=== PATIENT | male | born 1960 | race Caucasian/White ===

== ENCOUNTER 2020-11-07 11:05 | Emergency (ER) | payer BC, SELFPAY ==
--- NOTE | ~2020-11-07 | CT_ITS ---
EXAMINATION: CT abdomen pelvis wo con DATE: 11/07/2020 11:43 INDICATION: Left flank pain starting this morning TECHNIQUE: Computed tomography (CT) of the abdomen and pelvis was performed without intravenous contr ast. Automated exposure control and iterative reconstruction technique were employed. Exam dose: 418 .20 mGy-cm total exam DLP. COMPARISON: 05/14/2019 CT abdomen pelvis and KUB examinations FINDINGS: The lung bases are clear. Cardiomegaly. No pericardial or pleural effusion. There are 2 approximately 9 mm faceted gallstones at the dependent aspect of the gallbladder. No gall bladder wall thickening or pericholecystic fluid or fat stranding is evident. No bile duct dilatation . There are calcified hepatic and splenic granulomas. There is surface nodularity of the liver suggesti ng cirrhosis. No hepatic space-occupying mass lesion is evident on this limited noncontrast examinati on. There is splenomegaly, spleen measuring approximately 15 cm vertical dimension. No pancreatic mass lesion or calcification or pancreatic duct dilatation. Normal morphology of the adrenal glands. There is an approximately 3 mm left ureterovesical junction calculus with minimal left hydroureterone phrosis. No other urinary tract calculus is evident. There is atherosclerotic calcification of the abdominal aorta but no aneurysm. No intraperitoneal or retroperitoneal or pelvic mass lesion or adenopathy or ascites. Prostate gland and seminal vesicles are unremarkable. Normal appendix. No bowel obstruction, bowel wall thickening, pneumatosis or intraperitoneal free air . Small fat-containing umbilical hernia. Small fat-containing left inguinal hernia. Included skeletal structures are unremarkable; no suspicious osteolytic or osteoblastic lesions.. IMPRESSION: 3 mm left uterovesical junction calculus with mild left hydroureteronephrosis Cirrhosis, splenomegaly Cholelithiasis Reviewed, dictated and finalized at [facility]. Reviewed, dictated and finalized at location [facility]. IMPRESSION: 3 mm left uterovesical junction calculus with mild left hydrourete ronephrosis Cirrhosis, splenomegaly Cholelithiasis
[2020-11-07 11:08] VITALS: BP 119/87; PULSE 72; RESP 18; TEMP 36.6; O2SAT 97
[2020-11-07 11:29] LABS: Basophils Absolute Auto 0.1 K/mm3 (0.0-0.1); Basophils Percent Auto 0.5 % (0.2-1.2); Eosinophils Absolute Auto 0.4 K/mm3 (0-0.3); Eosinophils Percent Auto 3.9 % (0-4.4); Hematocrit 42.3 % (42.0-52.0); Immature Granulocyte Absolute 0.05 K/mm3 (0.00-0.031); Immature Granulocyte Percent A 0.5 % (0-0.5); Immature Platelet Fraction Pct 8.4 % (0.9-11.2); Lymphocytes Percent Auto 17.5 % (18.3-44.2); Mean Corpuscular HGB Conc 35.5 g/dl (32-36); Mean Corpuscular Hemoglobin 34.5 pg (26-34); Mean Corpuscular Volume 97.2 fl (80-100); Mean Platelet Volume 11.3 fl (7.4-10.4); Monocytes Percent Auto 10.4 % (2.6-8.5); Neutrophils Absolute Auto 6.1 K/mm3 (1.3-6.7); Neutrophils Percent Auto 67.2 % (45.5-73.1); Platelet Count Result 78 k/mm3 (150-375); Red Blood Count 4.35 M/mm3 (4.6-6.20); Red Cell Distribution Width 12.6 % (11.5-14.5); White Blood Count 9.1 K/mm3 (4.5-10.0)
--- NOTE | 2020-11-07 11:31 | ED.GENADULT ---
HPI - General Adult General Chief complaint: Back Pain/Injury Stated complaint: L FLANK PAIN Time Seen by Provider: 11/07/20 11:08 Source: RN notes reviewed History of Present Illness HPI narrative: Patient presents to emergency department from home for left flank pain. He states pain began this morning proximally 7 AM with pain in the left flank rating the left groin. Patient states pain is described as sharp and stabbing. He states he took no pain medication at home. Denies any fevers or chills, chest pain shortness of breath vomiting diarrhea or any other symptoms states he has a history of kidney stones Related Data Allergies Allergy/AdvReac Type Severity Reaction Status Date / Time No Known Allergies Allergy Verified 12/07/19 09:02 Review of Systems Review of Systems: Narrative: Gen.: Denies fevers or chills ENT: Denies congestion Respiratory: Denies shortness of breath or cough CV: Denies chest pain or palpitations GI: See HPI denies burning, urgency, frequency or hematuria Musculoskeletal: Denies back pain or muscle pain Neuro: Denies numbness, tingling, weakness or focal weakness Skin: Denies rash Except as documented, all other systems reviewed and negative [facility] Past Medical History Medical History Difficulty controlling anger Elevated liver enzymes Heart murmur History of kidney stones Hypertriglyceridemia Hypertriglyceridemia Myocardial infarction Myocardial infarction 1992 Type 2 diabetes mellitus Type 2 diabetes mellitus without complication, without long-term current use of insulin UTI (urinary tract infection) Surgical History Surgical History (Updated 08/19/19 @ 15:25 by Otilia Daley) No history of previous surgery Family History Family History (System 08/19/19 @ 15:25 by Otilia Daely) Mother Cerebrovascular accident Social History Social History Smoking packs per day: 1 Smoking cigarettes per day: 20.0 Smoking status: Current every day smoker Second hand tobacco smoke exposure: Yes Alcohol intake: never Gender identity (if verbalized by the patient): Male Exam Narrative: Exam Narrative: APPEARANCE: No acute distress, nontoxic, resting in bed HEENT: Normocephalic, atraumatic, OMM RESPIRATORY: No respiratory distress, clear to auscultation bilaterally with no rhonchi wheezing or rales CARDIOVASCULAR: RRR s murmur ABDOMINAL: Soft nondistended, tender outpatient left upper quadrant left lower quadrant, no tenderness right upper quadrant right lower quadrant no rebound or guarding, left flank tenderness MUSCULOSKELETAl: Moves all extremities. No clubbing, cyanosis or edema. NEURO: Awake and alert. Following commands, speech normal, no focal deficits SKIN:: Warm, dry. Normal Color PSYCHIATRIC: Normal affect/mood Course Course Emergency Course: Patient states his ride is at the emergency department and he must leave at this time. States that he cannot wait for any further evaluation. States he did urinate in the bathroom but did not give a urine sample discussed with patient risk and benefits of leaving AGAINST MEDICAL ADVICE and will leave at this time. I told the patient may return anytime. The CT scan was taken but not read at the time of leaving AMA I reviewed did see the kidney stone discussed this with the patient Patient has chosen to refuse further care. Risks of an incomplete evaluation and treatment were discussed with the patient including potential for or permanent disability were discussed with the patient seems to understand these risks but still desires to refuse further care. Patient recommended to follow up with her primary care physician in the next possible interval, specifically they?re told they can return to the ED at any time to resume care. Vital Signs Vital signs: Vital Signs Temperature 97.8 F 11/07/20 11:08 P
[2020-11-07] MEDS: KETOROLAC 30 MG/ML VIAL (*BKC) IV PUSH (11:36)
--- NOTE | 2020-11-07 11:39 | PC.NURSE ---
patient refuses to disrobe and change into hospital gown. refusing to answer questions until he gets pain medication
[2020-11-07 11:41] LABS: Anion Gap 3 mmol/L (8-16); Blood Urea Nitrogen 10 mg/dL (9-20); Calcium 9.3 mg/dL (8.4-10.2); Carbon Dioxide 25 mmol/L (22-30); Chloride 108 mmol/L (98-107); Estimated CRCL calculation 139 ml/min; Estimated Glomerular Filt Rate > 60; Glucose 169 mg/dL (75-110); Potassium 4.1 mmol/L (3.4-5.0); Sodium 136 mmol/L (137-145)
--- NOTE | 2020-11-07 11:49 | PC.NURSE ---
after returning patient from ct scan, sustainability director told this nurse that patient went out the back door to smoke a cigarette without informing nursing staff
--- NOTE | 2020-11-07 12:01 | PC.NURSE ---
patient refuses to provide urine specimen. states that he expected to be done within a half hour and that things are taking too long
== END 2020-11-07 12:15 | disposition left against medical advice (07) ==
PROVIDERS: Emergency Provider Emergency Medicine; PCP Internal Medicine
DX: N13.2 Hydronephrosis with renal and ureteral calculous obstruction (principal); E78.1 Pure hyperglyceridemia; I25.2 Old myocardial infarction; E11.9 Type 2 diabetes mellitus without complications
CPT/HCPCS: 36415; 74176; 80048; 85025; 85055; 96374; 99284; J1885; J7030

== ENCOUNTER 2022-01-10 14:43 | Outpatient (CLI) | payer BC, SELFPAY ==
[2022-01-10 19:13] LABS: Anion Gap 7 mmol/L (8-16); Blood Urea Nitrogen 11 mg/dL (9-20); Calcium 9.3 mg/dL (8.4-10.2); Carbon Dioxide 25 mmol/L (22-30); Chloride 100 mmol/L (98-107); Estimated Glomerular Filt Rate > 60; Glucose 404 mg/dL (65-110); Potassium 4.2 mmol/L (3.4-5.0); Sodium 132 mmol/L (137-145)
[2022-01-10 19:35] LABS: Hemoglobin A1C > 14.0 % (<5.7)
== END 2022-01-10 14:44 | disposition home or self-care (01) ==
LOC: ANHGOSHLAB 14:45
PROVIDERS: PCP Internal Medicine; Visit Provider Nurse Practitioner
DX: E11.9 Type 2 diabetes mellitus without complications (principal)
CPT/HCPCS: 36415; 80048; 83036

== ENCOUNTER 2022-01-30 20:54 | Emergency (ER) | payer BC, SELFPAY ==
[2022-01-30 20:55] VITALS: BP 148/89; PULSE 88; RESP 16; TEMP 36.8; O2SAT 99
--- NOTE | 2022-01-30 21:04 | ED.GENADULT ---
HPI - General Adult General Chief complaint: Allergic Reaction Stated complaint: ALLERGIC RX HORNET STINGS Time Seen by Provider: 01/30/22 20:56 History of Present Illness HPI narrative: 61-year-old male presented to the emergency department for evaluation after being stung by multiple hornets. Patient states this incident happened while he was mowing his yard and occurred approximately 30 minutes prior to arrival. Patient called EMS due to the amount of pain. Patient was treated with 50 mg of IV Benadryl in route. Patient denies any chest pain or shortness of breath. Patient does have multiple stings including the left chest wall and left abdominal wall. Related Data Allergies Allergy/AdvReac Type Severity Reaction Status Date / Time No Known Allergies Allergy Verified 01/30/22 21:04 Review of Systems Review of Systems: CONSTITUTIONAL: Denies fever, chills, or sweats. EYES: Denies visual changes, redness, or discharge. ENT: Denies rhinorrhea, congestion, sore throat, or otalgia. CARDIOVASCULAR: Denies chest pain, palpitations, or edema. Chest wall tenderness at site of sting RESPIRATORY: Denies cough or dyspnea. GASTROINTESTINAL: Denies abdominal pain, nausea, vomiting, or diarrhea. GENITOURINARY: Denies dysuria or hematuria. SKIN: Sting to left chest wall and to left abdominal wall MUSCULOSKELETAL: Denies back pain, joint pain, or myalgia. NEUROLOGIC: Denies headache, numbness, or weakness. [facility] Past Medical History Medical History Difficulty controlling anger Elevated liver enzymes Heart murmur History of kidney stones Hypertriglyceridemia Hypertriglyceridemia Myocardial infarction Myocardial infarction 1992 Type 2 diabetes mellitus Type 2 diabetes mellitus without complication, without long-term current use of insulin UTI (urinary tract infection) Surgical History Surgical History No history of previous surgery Family History Family History Mother Cerebrovascular accident Social History Social History (Updated 01/10/22 @ 13:[address] [facility]) Smoking packs per day: 1 Smoking cigarettes per day: 20.0 Smoking status: Current every day smoker Second hand tobacco smoke exposure: Yes Alcohol intake: never Gender identity (if verbalized by the patient): Male Exam Narrative: APPEARANCE: Well appearing, no pain, no distress, well-nourished. HEAD: normocephalic, atraumatic. EYES: PERRLA/EOMI, conjunctivae clear. NOSE: Normal no drainage EARS:TMS clear with good light reflex. THROAT: Pharynx clear, no exudate. NECK: Supple. No adenopathy, no masses. RESPIRATORY: Airway patent, respirations nonlabored. Clear to auscultation bilaterally, no rales, rhonchi, wheezing. CARDIOVASCULAR: Regular rate and rhythm without murmurs rubs or gallops. ABDOMINAL: Soft, nontender, nondistended, normal bowel sounds MUSCULOSKELETAL: Moves all extremities. Strength/ROM intact, No edema, No calf tenderness. NEURO: Alert. Cranial nerves II through XII intact. Grossly intact SKIN: Stings to left chest wall and left abdominal wall Course Course Emergency Course: Patient feels improved with treatment. Patient is was discharged home. Vital Signs Vital signs: Vital Signs Temperature 98.3 F 01/30/22 20:55 Pulse Rate 88 01/30/22 20:55 Respiratory Rate 16 01/30/22 20:55 Blood Pressure 148/89 H 01/30/22 20:55 Pulse Oximetry 99 01/30/22 20:55 Oxygen Delivery Room Air 01/30/22 20:55 Temperature 98.3 F 01/30/22 20:55 Pulse Rate 75 01/30/22 22:59 Respiratory Rate 18 01/30/22 22:59 Blood Pressure 130/82 01/30/22 22:59 Pulse Oximetry 97 01/30/22 22:59 Oxygen Delivery Room Air 01/30/22 20:55 Medical Decision Making Vital Signs Vital Signs: Vital Signs Temperature 98.3 F 01/30/22 20:55 Pulse Rate 88
[2022-01-30] MEDS: methylPREDNISolone SOD SUCC 125 MG VIAL IV PUSH (21:34)
[2022-01-30] MEDS: SODIUM CHLORIDE 0.9% IV 1,000 ML 999 ML IV CONT (21:35)
[2022-01-30] MEDS: FAMOTIDINE 20 MG/2 ML VIAL IV PUSH (21:36)
[2022-01-30] MEDS: fentaNYL CITRATE INJ (*CRX) 100 MCG/2 ML VIAL 50 MCG IV PUSH (21:38)
[2022-01-30 22:59] VITALS: BP 130/82; PULSE 75; RESP 18; O2SAT 97
== END 2022-01-30 23:00 | disposition home or self-care (01) ==
PROVIDERS: Emergency Provider Emergency Medicine; PCP Internal Medicine
DX: T63.451A Toxic effect of venom of hornets, accidental (unintentional), initial encounter (principal); E78.1 Pure hyperglyceridemia; E11.9 Type 2 diabetes mellitus without complications; I25.2 Old myocardial infarction; Z87.440 Personal history of urinary (tract) infections; Z87.442 Personal history of urinary calculi; F17.210 Nicotine dependence, cigarettes, uncomplicated; Z79.4 Long term (current) use of insulin
CPT/HCPCS: 96361; 96374; 96375; 99284; J2930; J3010; J7030

== ENCOUNTER 2022-05-21 13:58 | Outpatient (CLI) | payer BC, SELFPAY ==
[2022-05-21 20:13] LABS: Hemoglobin A1C > 14.0 % (<5.7)
[2022-05-21 20:21] LABS: LDL Cholesterol Direct 96 mg/dL
[2022-05-21 20:24] LABS: Anion Gap 7 mmol/L (8-16); Blood Urea Nitrogen 6 mg/dL (9-20); Calcium 8.1 mg/dL (8.4-10.2); Carbon Dioxide 25 mmol/L (22-30); Chloride 97 mmol/L (98-107); Cholesterol 203 mg/dL (0-200); Estimated Glomerular Filt Rate > 60; Glucose 597 mg/dL (65-110); HDL Direct 29 mg/dL; Potassium 4.3 mmol/L (3.4-5.0); Sodium 129 mmol/L (137-145); Triglycerides 338 mg/dL (<150)
[2022-05-23 17:35] LABS: Glutamic acid decarboxylase AA <5 IU/mL (<5)
== END 2022-05-21 13:59 | disposition home or self-care (01) ==
LOC: ANHGOSHLAB 14:01
PROVIDERS: PCP Internal Medicine; Visit Provider Nurse Practitioner
DX: E11.9 Type 2 diabetes mellitus without complications (principal)
CPT/HCPCS: 36415; 80048; 80061; 83036; 86337; 86341

== ENCOUNTER 2022-06-03 06:53 | Emergency (ER) | payer BC, SELFPAY ==
[2022-06-03] VITALS (8 sets, daily range): BP systolic 91–133; BP diastolic 62–80; PULSE 80–94; RESP 16–22; TEMP 37.3; O2SAT 94–100
--- NOTE | ~2022-06-03 | CT_ITS ---
EXAMINATION: CTA chest abdomen pelvis DATE: 06/03/2022 10:53 INDICATION: Chest pain. TECHNIQUE: Computed tomographic angiography (CTA) of the chest, abdomen, and pelvis was performed wit h 100 mL Omnipaque-350 intravenous contrast. Automated exposure control and iterative reconstruction technique were employed. The dose-length product was 685.23 mGy-cm. Maximum intensity projection 3D-r econstructions of the aorta and other arteries were constructed by the technologist on a separate wor kstation. COMPARISON: CT abdomen and pelvis 11/07/2020 FINDINGS: CHEST CTA: There is mild emphysema. Calcified pulmonary nodules and calcified hilar and mediastinal lymph nodes are consistent with old granulomatous disease. There is mild dependent atelectasis bilaterally. There is smooth septal thickening in the lungs, consistent with mild pulmonary edema. Cardiomegaly is note d. There are coronary artery calcifications. No pericardial effusion. There are calcifications of the aortic valve. There is mild aortic atherosclerosis. No aneurysm or dissection. There is bilateral gy necomastia. There is a small sliding hiatal hernia. ABDOMEN AND PELVIS CTA: The liver demonstrates hypertrophy of left lateral segment and surface nodularity, consistent with ci rrhosis. Calcifications in the liver and spleen are consistent with old granulomatous disease. There is moderate splenomegaly measuring 18.0 cm . There are gallstones in the gallbladder, which is disten ded. The pancreas, adrenal glands, and kidneys are normal. There are no dilated loops of bowel. The a ppendix is normal. There is mild aortic atherosclerosis. No aneurysm or dissection. There is no signi ficant stenosis of celiac axis, superior mesenteric artery, the renal arteries, or inferior mesenteri c artery. There is ulcerated plaque in left common iliac artery. There are no pathologically enlarged lymph nodes. There is no free intraperitoneal fluid. There is mild lumbar spondylosis. IMPRESSION: 1. No aortic dissection or aneurysm. 2. Cirrhosis of the liver with portal venous hypertension. 3. Cholelithiasis. Gallbladder distention may be secondary to fasting or acute cholecystitis. Correla te with physical exam. 4. Mild emphysema. 5. Mild pulmonary edema. 6. Small sliding hiatal hernia. Reviewed, dictated and finalized at location A. TIVE ARTS THERAPIST IMPRESSION: 1. No aortic dissection or aneurysm. 2. Cirrhosis of the liver with portal venous hypertension. 3. Cholelithiasis. Gallbladder distention may be secondary to fasting or acute cholecystitis. Correlate with physical exam. 4. Mild emphysema. 5. Mild pulmonary edema. 6. Small sliding hiatal hernia.
--- NOTE | ~2022-06-03 | XR_ITS ---
EXAMINATION: XR chest 2V DATE: 06/03/2022 07:40 INDICATION: Chest pain. TECHNIQUE: Frontal and lateral views of the chest were obtained. COMPARISON: CT abdomen and pelvis 11/07/2020 FINDINGS: There is mild scarring at left lung apex. No pleural effusion or pneumothorax. The heart si ze is normal. There are old healed right rib fractures. IMPRESSION: 1. Mild scarring at left lung apex. Reviewed, dictated and finalized at location A. Y POWDER MIXER OPERATOR
--- NOTE | 2022-06-03 06:58 | ECG_ITS ---
Measurements Intervals [place] Rate: 94 P: 48 ME: 158 QRS: 72 QRSD: 98 T: 14 QT: 346 QTc: 433 Interpretive Statements SINUS RHYTHM WITH OCCASIONAL VENTRICULAR PREMATURE COMPLEXES POSSIBLE LEFT VENTRICULAR HYPERTROPHY [VOLTAGE CRITERIA PLUS LAE OR QRS WIDENING] NONSPECIFIC T-WAVE ABNORMALITY NO PREVIOUS ECG AVAILABLE FOR COMPARISON Electronically Signed On 06-04-2022 6:22:57 GARNETT FEEDER by Timmy Byrne M.D.
[2022-06-03 07:47] LABS: Basophils Percent Auto 0.4 % (0.2-1.2); Eosinophils Absolute Auto 0.2 K/mm3 (0-0.3); Eosinophils Percent Auto 2.7 % (0-4.4); Hematocrit 41.1 % (42.0-52.0); Hemoglobin 14.2 g/dL (14.0-18.0); Immature Granulocyte Absolute 0.03 K/mm3 (0.00-0.031); Immature Granulocyte Percent A 0.4 % (0-0.5); Immature Platelet Fraction Pct 7.8 % (0.9-11.2); Lymphocytes Absolute Auto 1.41 K/mm3 (0.9-3.2); Lymphocytes Percent Auto 19.3 % (18.3-44.2); Mean Corpuscular HGB Conc 34.5 g/dl (32-36); Mean Corpuscular Hemoglobin 34.7 pg (26-34); Mean Corpuscular Volume 100.5 fl (80-100); Mean Platelet Volume 11.5 fl (7.4-10.4); Monocytes Percent Auto 13.4 % (2.6-8.5); Neutrophils Absolute Auto 4.7 K/mm3 (1.3-6.7); Neutrophils Percent Auto 63.8 % (45.5-73.1); Platelet Count Result 61 k/mm3 (150-375); Red Blood Count 4.09 M/mm3 (4.6-6.20); Red Cell Distribution Width 12.3 % (11.5-14.5); White Blood Count 7.3 K/mm3 (4.5-10.0)
[2022-06-03 07:54] LABS: Alanine Aminotransferase 23 U/L (6-50); Albumin Level 3.8 g/dL (3.5-5.1); Alkaline Phosphatase 133 U/L (38-126); Anion Gap 6 mmol/L (8-16); Aspartate Amino Transferase 23 U/L (17-59); Bilirubin,Total 0.8 mg/dL (0.2-1.3); Blood Urea Nitrogen 8 mg/dL (9-20); Calcium 8.8 mg/dL (8.4-10.2); Carbon Dioxide 27 mmol/L (22-30); Chloride 97 mmol/L (98-107); Estimated Glomerular Filt Rate > 60; Glucose 371 mg/dL (65-110); Lipase 115 U/L (23-300); Potassium 3.7 mmol/L (3.4-5.0); Sodium 130 mmol/L (137-145)
[2022-06-03 08:02] LABS: INR 1.2; Prothrombin Time 14.6 Seconds (11.1-14.7)
[2022-06-03 08:03] LABS: Partial Thromboplastin Time 36.9 SECONDS (22.3-36.8)
[2022-06-03 08:05] LABS: Troponin I 0.014 ng/mL (0.000-0.034)
--- NOTE | 2022-06-03 08:22 | ED.CHESTPAIN ---
HPI - Chest Pain General Chief Complaint: Chest Pain Stated Complaint: chest pain Time Seen by Provider: 06/03/22 07:58 History of Present Illness HPI narrative: This is a 61-year-old male with past medical history of diabetes, presenting to the emergency department complaining of 8/10, chest pain for the past day. He describes the pain as sharp, not radiating, aggravated by deep breathing and positioning, not associated with nausea or vomiting. He denies any recent trauma or recent change in health. Related Data Allergies Allergy/AdvReac Type Severity Reaction Status Date / Time No Known Allergies Allergy Verified 05/23/22 14:43 Review of Systems Review of Systems: CONSTITUTIONAL: Denies fever, chills, or sweats. EYES: Denies visual changes, redness, or discharge. ENT: Denies rhinorrhea, congestion, sore throat, or otalgia. CARDIOVASCULAR: chest pain Denies palpitations, or edema. RESPIRATORY: Denies cough or dyspnea. GASTROINTESTINAL: Denies abdominal pain, nausea, vomiting, or diarrhea. GENITOURINARY: Denies dysuria or hematuria. SKIN: Denies rash or itching. MUSCULOSKELETAL: Denies back pain, joint pain, or myalgia. NEUROLOGIC: Denies headache, numbness, dizziness, or weakness. PSYCHIATRIC: Denies anxiety or depression. [facility] Past Medical History Medical History Difficulty controlling anger Elevated liver enzymes Heart murmur History of kidney stones Hypertriglyceridemia Hypertriglyceridemia Myocardial infarction Myocardial infarction 1992 Type 2 diabetes mellitus Type 2 diabetes mellitus without complication, without long-term current use of insulin UTI (urinary tract infection) Surgical History Surgical History No history of previous surgery Family History Family History Mother Cerebrovascular accident Social History Social History Smoking packs per day: 1 Smoking cigarettes per day: 20.0 Smoking status: Current every day smoker Second hand tobacco smoke exposure: Yes Alcohol intake: never Substance use: current 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 EYES: PERRLA and EOMI. ENT: Nares clear, no rhinorrhea or epistaxis. Mucous membranes moist. Oropharynx without tonsillar hypertrophy exudate or other lesions. NECK: Supple. No adenopathy or masses. No carotid bruits or JVD CHEST: Clear to auscultation. No respiratory distress. No wheezes rales or rhonchi HEART: Regular rate and rhythm. Grade 3 of 5 systolic ejection murmur noted in the left sternal border. Normal peripheral pulses. ABDOMEN: Soft, nontender, nondistended, normal active bowel sounds. EXTREMITIES: Normal range of motion. No edema. SKIN: Warm, dry, no rash. NEURO: No focal deficits. Alert and oriented x3. PSYCH: Normal mood and affect. Course Course Emergency Course: 11:52 - EKG not concerning for ischemia. Initial troponin negative. Heart score 3 (low risk). Chemistry is remarkable for mild hyponatremia at 130 and hypochloremia at 97 with hyperglycemia but are otherwise unremarkable. Chest x-ray showed changes concerning for left upper lobe scarring. CT angiogram not concerning for dissection
[2022-06-03] MEDS: ASPIRIN 81 MG CHEWABLE TABLET 324 MG PO (08:25)
[2022-06-03] MEDS: MORPHINE SULFATE (*CRX) 4 MG/ML INJ IV PUSH (08:26)
--- NOTE | 2022-06-03 08:40 | PC.NURSE ---
Patient crying in room due to pain. Patient educated on use of nitroglycerin but is refusing stating, I don't want a headache my chest already hurts too bad. Patient agreed on taking one tablet.
[2022-06-03] MEDS: NITROGLYCERIN SL 0.4 MG TABLET SUBLINGUAL (08:43)
[2022-06-03] MEDS: SODIUM CHLORIDE 0.9% IV 1,000 ML 999 ML IV CONT (09:23)
--- NOTE | 2022-06-03 09:27 | PC.NURSE ---
Patient's blood pressure dropped to 91/66 following nitroglycerin administration. Patient denies any dizziness or feeling lightheaded. SIMONA Ng notified.
--- NOTE | 2022-06-03 11:48 | PC.NURSE ---
Patient states he is currently pain free. SIMONA Ng notified.
[2022-06-03 11:49] LABS: Troponin I 0.021 ng/mL (0.000-0.034)
--- NOTE | 2022-06-03 12:02 | PC.NURSE ---
Patient removed all cardiac leads and removed IV access. Catheter removed intact, blood noted on patient floor. Patient seen ambulating out of ED room stating, I am just grabbing something to drink I will be right back.
--- NOTE | 2023-12-02 13:09 | ED.GENADULT ---
HPI - General Adult General Chief complaint: Chest Pain Stated complaint: chest pain Time Seen by Provider: 06/03/22 07:58 Related Data Home Medications Medication Instructions Recorded Confirmed levetiracetam 750 mg tablet 750 mg PO Q12H 12/02/23 12/02/23 (Keppra) Allergies Allergy/AdvReac Type Severity Reaction Status Date / Time No Known Allergies Allergy Verified 12/02/23 13:09 [facility] Past Medical History Medical History Difficulty controlling anger Elevated liver enzymes Heart murmur History of kidney stones Hypertriglyceridemia Hypertriglyceridemia Liver cirrhosis Myocardial infarction Myocardial infarction 1992 Type 2 diabetes mellitus Type 2 diabetes mellitus without complication, without long-term current use of insulin UTI (urinary tract infection) Surgical History Surgical History No history of previous surgery Family History Family History Mother Cerebrovascular accident Social History Social History Smoking packs per day: 1 Smoking cigarettes per day: 20.0 Smoking status: Current every day smoker Second hand tobacco smoke exposure: Yes Alcohol intake: never Substance use: current Substance use type: heroin and prescription drug Other substance usage details: fentanyl Last use: 05/22/22 Lack of Transportation: No Lack of Food: Never True Current Housing: Decline to Answer Concerned About Future Housing: Decline to Answer Difficulty Paying Gas/Electric Bills: Decline to Answer Difficulty Paying for Meds: Decline to Answer Currently Unemployed: Decline to Answer Education: Decline to Answer Difficulty w/ Childcare or Family Care: Decline to Answer Gender identity (if verbalized by the patient): Male Course Vital Signs Vital signs: Vital Signs Pulse Rate 88 06/03/22 07:26 Respiratory Rate 18 06/03/22 07:26 Blood Pressure 133/80 06/03/22 07:26 Pulse Oximetry 95 06/03/22 07:26 Temperature 99.2 F 06/03/22 08:56 Pulse Rate 92 06/03/22 11:26 Respiratory Rate 16 06/03/22 11:26 Blood Pressure 98/67 L 06/03/22 11:26 Pulse Oximetry 100 06/03/22 11:26 Medical Decision Making Vital Signs Vital Signs: Vital Signs Pulse Rate 88 06/03/22 07:26 Respiratory Rate 18 06/03/22 07:26 Blood Pressure 133/80 06/03/22 07:26 Pulse Oximetry 95 06/03/22 07:26 Temperature 99.2 F 06/03/22 08:56 Pulse Rate 92 06/03/22 11:26 Respiratory Rate 16 06/03/22 11:26 Blood Pressure 98/67 L 06/03/22 11:26 Pulse Oximetry 100 06/03/22 11:26 Lab Data 06/03/22 07:22 06/03/22 07:22 Labs: Lab Results 06/03/22 06/03/22 Range/Units 07:22 10:10 WBC 7.3 (4.5-10.0) K/mm3 RBC 4.09 L (4.6-6.20) M/mm3 Hgb 14.2 (14.0-18.0) g/dL Hct 41.1 L (42.0-52.0) % MCV 100.5 H (80-100) fl MCH 34.7 H (26-34) pg MCHC 34.5 (32-36) g/dl RDW 12.3 (11.5-14.5) % Plt Count 61 L (150-375) k/mm3 MPV 11.5 H (7.4-10.4) fl Immature Gran % (Auto) 0.4 (0-0.5) % Neut % (Auto) 63.8 (45.5-73.1) % Lymph % (Auto) 19.3 (18.3-44.2) % [place] % (Auto) 13.4 H (2.6-8.5) % Eos % (Auto) 2.7 (0-4.4) % Baso % (Auto) 0.4 (0.2-1.2) % Lymph # (Auto) 1.41 (0.9-3.2) K/mm3 [place] # (Auto) 1.0 H (0.1-0.6) K/mm3 Eos # (Auto) 0.2 (0-0.3) K/mm3 Baso # (Auto) 0.0 (0.0-0.1) K/mm3 Abs Immat Gran (auto) 0.03 (0.00-0.031) K/mm3 Absolute Neuts (auto) 4.7 (1.3-6.7) K/mm3 Absolute Nucleated RBC 0.0 (0.0-0.012) K/mm3 Nucleated RBC % 0.0 (0.0-0.2) % % Immature Plt Fraction 7.8 (0.9-11.2) % PT 14.6 (11.1-14.7) Seconds INR 1.2 APTT 36.9 H (22.3-36.8) SECONDS Sodium 130 L (137-145) mmol/L Potassium 3
== END 2022-06-03 12:20 | disposition home or self-care (01) ==
PROVIDERS: Emergency Medicine; Emergency Provider Preventive Medicine Aerospace Medicine; PCP Internal Medicine
DX: R07.89 Other chest pain (principal); K21.9 Gastro-esophageal reflux disease without esophagitis; J43.9 Emphysema, unspecified; E11.9 Type 2 diabetes mellitus without complications; E78.1 Pure hyperglyceridemia; I25.2 Old myocardial infarction; Z87.440 Personal history of urinary (tract) infections; Z87.442 Personal history of urinary calculi; F17.200 Nicotine dependence, unspecified, uncomplicated; Z79.4 Long term (current) use of insulin; R94.31 Abnormal electrocardiogram [ECG] [EKG]; K74.60 Unspecified cirrhosis of liver; K76.6 Portal hypertension; J81.1 Chronic pulmonary edema; K80.20 Calculus of gallbladder without cholecystitis without obstruction; K44.9 Diaphragmatic hernia without obstruction or gangrene
CPT/HCPCS: 36415; 71046; 71275; 74174; 80053; 83690; 84484; 85025; 85055; 85610; 85730; 93005; 96361; 96374; 96375; 99284; A9270; J0131; J2270; J7030; Q9967

== ENCOUNTER 2022-06-03 23:41 | Observation (INO) | payer BC, SELFPAY ==
--- NOTE | ~2022-06-03 | XR_ITS ---
EXAMINATION: XR chest 1V portable Exam Date/Time: 06/03/2022 0:35 RUBBERIZING MECHANIC HISTORY: chest pain, smoker Comparison: 06/03/2022. RESULT: Lines, tubes, and devices: None. Lungs and pleura: Diffuse reticular and groundglass opacities. Streaky linear bibasilar opacities. N o pneumothorax. Minimal bilateral costophrenic angle blunting. Cardiomediastinal silhouette: Stable. Other: No acute osseous or upper abdominal finding. IMPRESSION: Pulmonary opacities likely represent interstitial edema and bibasilar atelectasis. Possible trace priscila ateral pleural effusions Infection not excluded. Reviewed, dictated and finalized at location K. ERIZING MECHANIC IMPRESSION: Pulmonary opacities likely represent interstitial edema and bibasilar atelectas is. Possible trace bilateral pleural effusions Infection not excluded.
[2022-06-03 23:42] VITALS: BP 130/85; PULSE 114; RESP 22; TEMP 37.7; O2SAT 92
--- NOTE | 2022-06-03 23:42 | ECG_ITS ---
Measurements Intervals [place] Rate: 95 P: 24 PA: 161 QRS: 93 QRSD: 109 T: 18 QT: 359 QTc: 452 Interpretive Statements SINUS RHYTHM BORDERLINE RIGHT AXIS DEVIATION [QRS AXIS > 90] BORDERLINE VOLTAGE EVIDENCE OF LVH SMALL NONDIAGNOSTIC INFERIOR Q-WAVES ABNORMAL ECG NO PREVIOUS ECG AVAILABLE FOR COMPARISON Electronically Signed On 06-04-2022 15:02:57 VENEER SORTER by Timmy Byrne M.D.
[2022-06-03 23:48] VITALS: RESP 23
--- NOTE | 2022-06-03 23:51 | ED.CHESTPAIN ---
HPI - Chest Pain General Chief Complaint: Chest Pain Stated Complaint: chest pain Time Seen by Provider: 06/03/22 23:43 Source: RN notes reviewed History of Present Illness HPI narrative: Patient presents emergency department from home via EMS for chest pain. Patient states chest pains been ongoing for the past 3 days. The pain is located across his bilateral anterior chest described as aching in nature. Patient states the pain is worse with movement and deep inspiration states that nothing makes the pain better. He denies having any fevers or chills states he does have a intermittent cough that is nonproductive he denies any abdominal pain nausea or vomiting. States he is having shortness of breath. Patient was seen in the emergency department earlier today for the same chest pain and had a work-up and was discharged at that time Related Data Allergies Allergy/AdvReac Type Severity Reaction Status Date / Time No Known Allergies Allergy Verified 06/03/22 23:45 Review of Systems Review of Systems: Gen.: Denies fevers or chills ENT: Denies congestion Respiratory: Denies shortness of breath reports cough CV: See HPI GI: Denies abdominal pain nausea, emesis or diarrhea Musculoskeletal: Denies back pain or muscle pain Neuro: Denies numbness, tingling, weakness or focal weakness Skin: Denies rash Except as documented, all other systems reviewed and negative [facility] Past Medical History Medical History Difficulty controlling anger Elevated liver enzymes Heart murmur History of kidney stones Hypertriglyceridemia Hypertriglyceridemia Myocardial infarction Myocardial infarction 1992 Type 2 diabetes mellitus Type 2 diabetes mellitus without complication, without long-term current use of insulin UTI (urinary tract infection) Surgical History Surgical History No history of previous surgery Family History Family History Mother Cerebrovascular accident Social History Social History Smoking packs per day: 1 Smoking cigarettes per day: 20.0 Smoking status: Current every day smoker Second hand tobacco smoke exposure: Yes Alcohol intake: never Substance use: current Substance use type: heroin and prescription drug Other substance usage details: fentanyl Last use: 05/22/22 Lack of Transportation: No Lack of Food: Never True Current Housing: I Have Housing Concerned About Future Housing: No Difficulty Paying Gas/Electric Bills: Decline to Answer Difficulty Paying for Meds: Decline to Answer Currently Unemployed: Decline to Answer Education: Decline to Answer Difficulty w/ Childcare or Family Care: Decline to Answer Gender identity (if verbalized by the patient): Male Exam Narrative: APPEARANCE: No acute distress, nontoxic, resting in bed EYES: EOMI HEENT: Normocephalic, atraumatic, OMM RESPIRATORY: No respiratory distress Clear to auscultation bilaterally with no rhonchi wheezing or rales. CARDIOVASCULAR: Regular rate and rhythm with grade 4 out of 6 systolic ejection murmur ABDOMINAL: Soft, nontender, nondistended, no rebound or guarding MUSCULOSKELETAl: Moves all extremities. No clubbing, cyanosis or edema. NEURO: Awake and alert. Following commands, speech normal, no focal deficits SKIN:: Warm, dry. No rashes lesions or abrasions PSYCHIATRIC: Normal affect/mood, Course Course Emergency Course: Reviewed records from previous ER visit this morning the patient had 2 troponins that were within normal limits patient also had a CTA of the chest abdomen pelvis at that time showing no signs of aortic aneurysm or dissection. No pulmonary embolisms Discussed with Dr. Parada agrees with admission Discussed with patient and family results of workup and diagnosis. Discu
[2022-06-03 23:52] VITALS: BP 128/76; PULSE 104; RESP 22
[2022-06-04] VITALS (9 sets, daily range): BP systolic 101–127; BP diastolic 69–88; PULSE 85–111; RESP 12–33; TEMP 36.6; O2SAT 89–95; BMI 25.4
[2022-06-04] MEDS: ASPIRIN 81 MG CHEWABLE TABLET 324 MG PO
[2022-06-04] MEDS: SODIUM CHLORIDE 0.9% IV 1,000 ML 999 ML IV CONT
[2022-06-04] MEDS: MORPHINE SULFATE (*CRX) 2 MG/ML INJ IV PUSH (00:01)
[2022-06-04 00:19] LABS: Alanine Aminotransferase 22 U/L (6-50); Albumin Level 3.8 g/dL (3.5-5.1); Alkaline Phosphatase 129 U/L (38-126); Anion Gap 6 mmol/L (8-16); Aspartate Amino Transferase 25 U/L (17-59); Blood Urea Nitrogen 8 mg/dL (9-20); Calcium 8.7 mg/dL (8.4-10.2); Carbon Dioxide 25 mmol/L (22-30); Chloride 98 mmol/L (98-107); Estimated Glomerular Filt Rate > 60; Glucose 290 mg/dL (65-110); Lipase 26 U/L (23-300); Potassium 3.8 mmol/L (3.4-5.0); Sodium 129 mmol/L (137-145)
[2022-06-04 00:20] LABS: Basophils Percent Auto 0.4 % (0.2-1.2); Eosinophils Absolute Auto 0.2 K/mm3 (0-0.3); Eosinophils Percent Auto 1.5 % (0-4.4); Hematocrit 40.7 % (42.0-52.0); Hemoglobin 14.4 g/dL (14.0-18.0); Immature Granulocyte Absolute 0.07 K/mm3 (0.00-0.031); Immature Granulocyte Percent A 0.6 % (0-0.5); Immature Platelet Fraction Pct 8.1 % (0.9-11.2); Lymphocytes Absolute Auto 1.18 K/mm3 (0.9-3.2); Lymphocytes Percent Auto 10.7 % (18.3-44.2); Mean Corpuscular HGB Conc 35.4 g/dl (32-36); Mean Platelet Volume 10.7 fl (7.4-10.4); Monocytes Absolute Auto 1.7 K/mm3 (0.1-0.6); Monocytes Percent Auto 15.4 % (2.6-8.5); Neutrophils Absolute Auto 7.8 K/mm3 (1.3-6.7); Neutrophils Percent Auto 71.4 % (45.5-73.1); Platelet Count Result 77 k/mm3 (150-375); Red Blood Count 4.11 M/mm3 (4.6-6.20); Red Cell Distribution Width 12.2 % (11.5-14.5)
[2022-06-04 00:21] LABS: INR 1.3; Prothrombin Time 15.3 Seconds (11.1-14.7)
[2022-06-04 00:22] LABS: Partial Thromboplastin Time 38.4 SECONDS (22.3-36.8)
[2022-06-04 00:27] LABS: NT Pro B Type Natriuretic Pept 664 pg/mL (5-100)
[2022-06-04 00:30] LABS: Troponin I 0.021 ng/mL (0.000-0.034)
[2022-06-04 00:58] LABS: Influenza A QL RT-PCR Negative (Negative); Influenza B QL RT-PCR Negative (Negative); SARS-CoV-2 RNA PCR Negative
--- NOTE | 2022-06-04 01:21 | PC.NURSE ---
patient refuses to wear oxygen, he states, it isn't helping me at all . attempted to discuss the need for oxygen and he continues to refuse. he also is refusing to wear BP cuff
[2022-06-04 01:36] LABS: Lactic Acid Reflex 0.9 mmol/L (0.7-2.0)
--- NOTE | 2022-06-04 01:57 | PC.NURSE ---
Patient arrived on unit at 01:52 on 06/04/2022
--- NOTE | 2022-06-04 02:30 | PC.NURSE ---
Patient non-compliant with admission process and is refusing to answer questions appropriately related to past medical history. Patient is a&o x4 and able to answer orientation questions appropriately, but will not provide information regarding history. Patient repeatedly states he would like to sign out AMA.
--- NOTE | 2022-06-04 02:58 | PC.NURSE ---
Patient was non-compliant and belligerent during admission process, presents as a&ox4, however refuses to answer past medical history and insists on leaving the floor to go outside. fast food cook notified and assisted in attempting to discuss risks with patient, patient continued to be belligerent and stated this is not a detention, you cannot stop me from going outside ; lost charge card clerk explained hospital policy, patient resistant to education pertaining to admission and signing out AMA. AMA form printed and signed by patient; IV access removed prior to patient departure. Patient escorted to the exit in the emergency room, continuing to curse at staff. RN asked if patient had transportation home and was met with the reply that is not your concern . Wildlife Refuge Specialist notified of AMA status.
--- NOTE | 2022-06-04 04:46 | PM.IMHP ---
H&P: HPI History of Present Illness Date/Time: 06/04/22 04:46 Chief Complaint: Chest pain Narrative: The patient was admitted for commute choir pneumonia. Shortly after arriving to the medical floor the patient demanded to go outside and smoke. When he found out that hospital policy for hip but it him from being able to go outside and smoke he became angry And belligerent with staff. He was complaining about chest pain but was demanding to go outside to smoke. While leaving through the ER the patient continued occurs at nursing staff. The patient left AMA despite being educated as to the risks of doing so. [facility] Past Medical History Medical History Difficulty controlling anger Elevated liver enzymes Heart murmur History of kidney stones Hypertriglyceridemia Hypertriglyceridemia Myocardial infarction Myocardial infarction 1992 Type 2 diabetes mellitus Type 2 diabetes mellitus without complication, without long-term current use of insulin UTI (urinary tract infection) Surgical History Surgical History No history of previous surgery Family History Family History Mother Cerebrovascular accident Social History Social History Smoking packs per day: 1 Smoking cigarettes per day: 20.0 Smoking status: Current every day smoker Second hand tobacco smoke exposure: Yes Alcohol intake: never Substance use: current Substance use type: heroin and prescription drug Other substance usage details: fentanyl Last use: 05/22/22 Lack of Transportation: No Lack of Food: Never True Current Housing: I Have Housing Concerned About Future Housing: No Difficulty Paying Gas/Electric Bills: Decline to Answer Difficulty Paying for Meds: Decline to Answer Currently Unemployed: Decline to Answer Education: Decline to Answer Difficulty w/ Childcare or Family Care: Decline to Answer Gender identity (if verbalized by the patient): Male Meds Home Medications and Allergies Home Medications Medication Instructions Recorded Confirmed Type blood sugar diagnostic (Accu-Chek #100 ea 09/21/21 06/04/22 Rx Guide test strips) blood-glucose meter (Accu-Chek #1 ea 09/21/21 06/04/22 Rx Guide Glucose Meter) lancets (Accu-Chek Softclix #100 ea 09/21/21 06/04/22 Rx Lancets) insulin syringe-needle U-100 0.5 #100 ea 09/25/21 06/04/22 Rx mL 31 gauge x 5/16 (BD Insulin Syringe Ultra-Fine) pen needle, diabetic 31 gauge x #100 ea 09/27/21 06/04/22 Rx 5/16 (BD Ultra-Fine Short Pen Needle) luliconazole 1 % topical cream 1 applic topical DAILY 1 week #60 01/10/22 06/04/22 Rx (Luzu) grams insulin glargine 100 unit/mL (3 30 unit (0.3 mL) subcut QPM 90 05/23/22 06/04/22 Rx mL) subcutaneous pen (Basagl days #15 mL KwikPen U-100 Insulin) acetaminophen 500 mg capsule 1,000 mg PO Q8H PRN fever or pain 06/03/22 06/04/22 Rx #60 caps Allergies Allergy/AdvReac Type Severity Reaction Status Date / Time No Known Allergies Allergy Verified 06/04/22 02:01 Vital Signs Vital Signs - 24 hr 06/03/22 23:42 06/04/22 00:32 06/03/22 23:48 Temperature 99.8 F H Pulse Rate 114 H Respiratory Rate 22 H 23 H Blood Pressure 130/85 Pulse Oximetry 92 95 Oxygen Delivery Room Air Nasal Cannula Oxygen Flow Rate 2 06/03/22 23:52 06/04/22 00:00 06/04/22 00:03 Temperature Pulse Rate 104 H 111 H 108 H Respiratory Rate 22 H 33 H 33 H Blood Pressure 128/76 127/88 Pulse Oximetry 92 Oxygen Delivery Oxygen Flow Rate 06/04/22 00:15 06/04/22 00:30 06/04/22 01:43 Temperature Pulse Rate 96 95 87 Respiratory Rate 29 H 30 H 24 H Blood Pressure 101/69 Pulse Oximetry 89 L 90 Oxygen Delivery Oxygen Flow Rate 06/04/22 00:49
== END 2022-06-04 02:45 | disposition left against medical advice (07) ==
LOC: ANHED 23:45 → ANH3MEDSUR 06-04 01:30
PROVIDERS: Admitting Provider Internal Medicine; Emergency Provider Emergency Medicine; PCP Internal Medicine; Visit Provider Internal Medicine
DX: R01.1 Cardiac murmur, unspecified (principal); E78.1 Pure hyperglyceridemia; I25.2 Old myocardial infarction; E11.9 Type 2 diabetes mellitus without complications; Z20.822 Contact with and (suspected) exposure to COVID-19; F17.210 Nicotine dependence, cigarettes, uncomplicated; F11.90 Opioid use, unspecified, uncomplicated; J18.9 Pneumonia, unspecified organism; R09.1 Pleurisy; R94.31 Abnormal electrocardiogram [ECG] [EKG]; R45.4 Irritability and anger; Z53.29 Procedure and treatment not carried out because of patient's decision for other reasons; Z79.4 Long term (current) use of insulin; Z79.1 Long term (current) use of non-steroidal anti-inflammatories (NSAID); Z79.899 Other long term (current) drug therapy; Z82.49 Family history of ischemic heart disease and other diseases of the circulatory system
CPT/HCPCS: 36415; 71045; 80053; 83605; 83690; 83880; 84484; 85025; 85055; 85610; 85730; 87040; 87636; 93005; 96361; 96365; 96375; 99285; A9270; G0378; J0696; J2270; J7030

== ENCOUNTER 2023-12-02 12:38 | Emergency (ER) | payer BC, SELFPAY ==
[2023-12-02] VITALS (27 sets, daily range): BP systolic 68–161; BP diastolic 42–131; PULSE 64–83; RESP 14–24; TEMP 36.7; O2SAT 97–100
--- NOTE | ~2023-12-02 | XR_ITS ---
Portable chest x-ray Comparison: 06/04/2022 Clinical History: Altered mental status Findings: Lungs are clear, without focal consolidation or pleural effusion. Cardiomediastinal silho uette is stable. Bones and soft tissues are unremarkable. Impression: Clear lungs. Reviewed, dictated and finalized at location . Impression: Clear lungs.
--- NOTE | ~2023-12-02 | CT_ITS ---
Corrected Report Correction to Visit acct # 12/03/2023 [facility] This report was recreated on 12/03/2023. Original report was signed by Peter Barreto M.D. on 12/02/2023 15:08 CDT. EXAMINATION: CT brain wo con DATE: 12/02/2023 14:45 INDICATION: AMS . TECHNIQUE: Computed tomography (CT) of the head was performed without intravenous contrast. The mA was adjusted according to patient size. Iterative reconstruction technique was employed. The dose-length product was 605.33 mGy- cm. COMPARISON: None. FINDINGS: No acute intracranial hemorrhage or extra-axial fluid collection. No hydrocephalus, mass, or herniation. No acute ischemic infarct. Unremarkable dural venous sinus attenuation. No acute osseous abnormality. Partially visualized left anterior maxillary screw and plate fixation hardware. Mild atrophy and chronic white matter change. Atherosclerotic intracranial calcification. Left lens replacement. Retention cysts/polyps in the ethmoid sinuses, the remaining aerated spaces are clear. IMPRESSION: No acute intracranial process. Reviewed, dictated and finalized at location K. MTDD
--- NOTE | 2023-12-02 13:16 | ECG_ITS ---
Test Date: 2023-12-02 13:44:59 Measurements Intervals [place] Rate: 85 P: 59 RI: 163 QRS: 88 QRSD: 105 T: 18 QT: 400 QTc: 478 Interpretive Statements SINUS RHYTHM NONSPECIFIC ST & T-WAVE ABNORMALITY No previous ECG available for comparison Electronically Signed On 12-03-2023 10:43:26 CDT by Amber Cha M.D.
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
[2023-12-02] MEDS: diphenhydrAMINE HCl INJ 50 MG/ML VIAL IM (13:34)
[2023-12-02] MEDS: LORazepam INJ (*CRX) 2 MG/ML VIAL IM (13:34)
[2023-12-02] MEDS: LORazepam INJ (*CRX) 2 MG/ML VIAL 1 MG IV PUSH (13:48)
[2023-12-02 13:58] LABS: Basophils Percent Auto 0.5 % (0.2-1.2); Eosinophils Absolute Auto 0.3 K/mm3 (0-0.3); Hematocrit 43.7 % (42.0-52.0); Hemoglobin 15.6 g/dL (14.0-18.0); Immature Granulocyte Absolute 0.03 K/mm3 (0.00-0.031); Immature Granulocyte Percent A 0.4 % (0-0.5); Immature Platelet Fraction Pct 9.5 % (0.9-11.2); Lymphocytes Absolute Auto 2.16 K/mm3 (0.9-3.2); Lymphocytes Percent Auto 29.5 % (18.3-44.2); Mean Corpuscular HGB Conc 35.7 g/dl (32-36); Mean Corpuscular Hemoglobin 35.1 pg (26-34); Mean Corpuscular Volume 98.4 fl (80-100); Monocytes Absolute Auto 0.9 K/mm3 (0.1-0.6); Monocytes Percent Auto 11.9 % (2.6-8.5); Neutrophils Absolute Auto 3.9 K/mm3 (1.3-6.7); Neutrophils Percent Auto 53.7 % (45.5-73.1); Platelet Count Result 59 k/mm3 (150-375); Red Blood Count 4.44 M/mm3 (4.6-6.20); Red Cell Distribution Width 12.4 % (11.5-14.5); White Blood Count 7.3 K/mm3 (4.5-10.0)
[2023-12-02 14:06] LABS: Alanine Aminotransferase 29 U/L (6-50); Albumin Level 4.1 g/dL (3.5-5.1); Alkaline Phosphatase 128 U/L (38-126); Anion Gap 9 mmol/L (4-12); Appearance Urine Clear (Clear); Aspartate Amino Transferase 37 U/L (17-59); Bacteria Urine None Seen /hpf; Bilirubin Urine 1+ (Negative); Bilirubin,Total 1.7 mg/dL (0.2-1.3); Blood Urea Nitrogen 8 mg/dL (9-20); Blood Urine Negative (Negative); Carbon Dioxide 24 mmol/L (22-30); Chloride 101 mmol/L (98-107); Color Urine Dark Yellow (Yellow); Estimated CRCL calculation 111 ml/min; Estimated Glomerular Filt Rate > 60; Ethanol < 10 mg/dL (<10); Glucose 260 mg/dL (65-110); Glucose Urine UA 3+ mg/dL (Negative); Ketones Urine Trace mg/dL (Negative); Leukocyte Esterase Ur Negative LEU/UL (Negative); Nitrate Urine Negative (Negative); Non Pathogenic Casts 0-2; Potassium 3.7 mmol/L (3.4-5.0); Protein Urine Trace mg/dL (Negative); RBC Urine 0-2 /hpf (0-2); Sodium 134 mmol/L (137-145); Squamous Epithelial Cell Urine None Seen /hpf (Few); WBC Urine 0-5 /hpf (0-3); pH Urine 5.5 (5.0-9.0)
[2023-12-02 14:07] LABS: INR 1.1; Prothrombin Time 14.9 Seconds (11.1-14.7)
[2023-12-02 14:08] LABS: Partial Thromboplastin Time 37.3 Seconds (22.3-36.8)
[2023-12-02 14:14] LABS: Amphetamine Screen Urine Negative (Negative); Barbiturate Screen Urine Negative (Negative); Benzodiazepines Screen Urine Negative (Negative); Cannabinoid Screen Urine Negative (Negative); Cocaine Screen Urine Negative (Negative); Methadone Screen Urine Negative (Negative); Opiate Screen Urine Negative (Negative); Phencyclidine Screen Urine Negative (Negative)
[2023-12-02 14:16] LABS: Specific Grav Ur 1.035 (1.001-1.035)
[2023-12-02 14:17] LABS: Add Urine Microscopic? YES
[2023-12-02 14:22] LABS: Troponin I < 0.012 ng/mL (0.000-0.034)
[2023-12-02 14:51] LABS: Appearance Urine Clear (Clear); Bacteria Urine None Seen /hpf; Bilirubin Urine Negative (Negative); Blood Urine Negative (Negative); Color Urine Dark Yellow (Yellow); Glucose Urine UA 3+ mg/dL (Negative); Ketones Urine Negative (Negative); Leukocyte Esterase Ur Negative LEU/UL (Negative); Nitrate Urine Negative (Negative); Non Pathogenic Casts 0-2; Protein Urine Trace mg/dL (Negative); RBC Urine 0-2 /hpf (0-2); Squamous Epithelial Cell Urine None Seen /hpf (Few); WBC Urine 0-5 /hpf (0-3); pH Urine 5.5 (5.0-9.0)
[2023-12-02 14:53] LABS: Specific Grav Ur 1.035 (1.001-1.035)
[2023-12-02 14:54] LABS: Add Urine Microscopic? YES
[2023-12-02 16:04] LABS: Thyroid Stimulating Hormone 0.897 uIU/mL (0.465-4.680)
[2023-12-02] MEDS: levETIRAcetam 1500MG/NACL100ML 1,500 MG/100 ML BAG 400 MG IVPB (16:41)
== END 2023-12-02 18:30 | disposition short-term general hospital (02) ==
PROVIDERS: Emergency Provider Emergency Medicine; PCP Internal Medicine
DX: R41.82 Altered mental status, unspecified (principal); R47.01 Aphasia; R56.9 Unspecified convulsions; I65.23 Occlusion and stenosis of bilateral carotid arteries; I25.2 Old myocardial infarction; E11.9 Type 2 diabetes mellitus without complications; E78.1 Pure hyperglyceridemia; Z87.440 Personal history of urinary (tract) infections; Z87.442 Personal history of urinary calculi; F17.210 Nicotine dependence, cigarettes, uncomplicated; Z79.4 Long term (current) use of insulin; Z79.899 Other long term (current) drug therapy
CPT/HCPCS: 36415; 70450; 71045; 80053; 80307; 81001; 84443; 84484; 85025; 85055; 85610; 85730; 93005; 96365; 96372; 96375; 99285; A9270; J1200; J1953; J2060

== ENCOUNTER 2023-12-23 14:46 | Outpatient (CLI) | payer BC, SELFPAY ==
--- NOTE | ~2023-12-23 | US_ITS ---
EXAMINATION: US venous doppler [facility] DATE: 12/23/2023 15:16 INDICATION: Localized edema . TECHNIQUE: Grayscale images without and with compression and Doppler images of the left lower extremi ty veins were obtained. COMPARISON: None FINDINGS: The left common femoral vein, profunda (deep) femoral vein, femoral vein, popliteal vein, peroneal v ein, posterior tibial veins, gastrocnemius vein, and greater saphenous vein are patent. Small Zimmer's cyst in the popliteal fossa. IMPRESSION: Patent left lower extremity veins. No evidence of deep venous thrombosis. Reviewed, dictated and finalized at location K.
== END 2023-12-23 14:47 ==
PROVIDERS: PCP Internal Medicine; Visit Provider Internal Medicine
DX: M79.89 Other specified soft tissue disorders (principal); R60.0 Localized edema
CPT/HCPCS: 93971

== ENCOUNTER 2023-12-26 17:50 | Observation (INO) | payer BC, SELFPAY ==
--- NOTE | ~2023-12-26 | CT_ITS ---
Procedure: CT UE RT w con Ordering provider: Valentina Good PA-C History: . induration/redness/pain to R axillary/upper arm . Comparison: None. Technique: Thin slice axial CT of the No IV contrast was given. Sagittal and coronal reformatted imag es were also obtained and reviewed. Radiation reduction technique utilized. DLP 1649.12 mGy. Findings: BONES: No bone abnormality. JOINT SPACES: Normal. SOFT TISSUES: Fat stranding seen in the medial aspect of the right arm and axilla with possible colle ction or thickening of the soft tissues measuring 2.8 x 1.7 cm. Lymph node is seen in the area measur ing 1.8 cm. IMPRESSION: Cellulitis in the upper inner aspect of the right arm and in the axilla with no definite abscess form ation. Small fluid collection or focal edematous tissue cannot be excluded. Reviewed, dictated and finalized at location A. IMPRESSION: Cellulitis in the upper inner aspect of the right arm and in the axilla with no definite abscess formation. Small fluid collection or focal edematous tissue c annot be excluded.
[2023-12-26 17:57] VITALS: BP 135/83; PULSE 94; RESP 20; TEMP 36.6; O2SAT 96
[2023-12-26] MEDS: MORPHINE SULFATE (*CRX) 4 MG/ML INJ IV PUSH ×2 (19:02→21:45)
[2023-12-26] MEDS: ONDANSETRON INJ 4 MG/2 ML VIAL IV PUSH (19:02)
[2023-12-26 19:06] LABS: Basophils Absolute Auto 0.1 K/mm3 (0.0-0.1); Basophils Percent Auto 0.5 % (0.2-1.2); Eosinophils Absolute Auto 0.3 K/mm3 (0-0.3); Eosinophils Percent Auto 2.7 % (0-4.4); Hematocrit 38.7 % (42.0-52.0); Hemoglobin 13.9 g/dL (14.0-18.0); Immature Granulocyte Absolute 0.07 K/mm3 (0.00-0.031); Immature Granulocyte Percent A 0.7 % (0-0.5); Immature Platelet Fraction Pct 10.3 % (0.9-11.2); Lymphocytes Absolute Auto 1.47 K/mm3 (0.9-3.2); Lymphocytes Percent Auto 14.6 % (18.3-44.2); Mean Corpuscular HGB Conc 35.9 g/dl (32-36); Mean Corpuscular Volume 97.5 fl (80-100); Mean Platelet Volume 11.9 fl (7.4-10.4); Monocytes Absolute Auto 1.5 K/mm3 (0.1-0.6); Monocytes Percent Auto 14.5 % (2.6-8.5); Neutrophils Absolute Auto 6.7 K/mm3 (1.3-6.7); Platelet Count Result 55 k/mm3 (150-375); Red Blood Count 3.97 M/mm3 (4.6-6.20); Red Cell Distribution Width 13.2 % (11.5-14.5); White Blood Count 10.1 K/mm3 (4.5-10.0)
[2023-12-26 19:13] LABS: INR 1.2; Prothrombin Time 15.3 Seconds (11.1-14.7)
[2023-12-26 19:14] LABS: Partial Thromboplastin Time 39.7 Seconds (22.3-36.8)
[2023-12-26 19:16] LABS: Alanine Aminotransferase 24 U/L (6-50); Albumin Level 3.8 g/dL (3.5-5.1); Alkaline Phosphatase 130 U/L (38-126); Anion Gap 4 mmol/L (4-12); Aspartate Amino Transferase 27 U/L (17-59); Bilirubin,Total 1.4 mg/dL (0.2-1.3); Blood Urea Nitrogen 12 mg/dL (9-20); Calcium 8.9 mg/dL (8.4-10.2); Carbon Dioxide 25 mmol/L (22-30); Chloride 106 mmol/L (98-107); Estimated CRCL calculation 121 ml/min; Estimated Glomerular Filt Rate > 60; Glucose 184 mg/dL (65-110); Potassium 4.1 mmol/L (3.4-5.0); Sodium 135 mmol/L (137-145)
--- NOTE | 2023-12-26 19:16 | ED.SKABFB ---
HPI - Skin/Abscess/Foreign Bdy General Chief complaint: Skin/Abscess/Foreign Body <RENETTA Juarez Last Filed: 12/26/23 21:52> Stated complaint: right armpit boil <RENETTA Juarez Last Filed: 12/26/23 21:52> Time Seen by Provider: 12/26/23 18:04 <RENETTA Juarez Last Filed: 12/26/23 21:52> Source: patient and old records reviewed <RENETTA Juarez Filed: 12/26/23 21:52> Mode of arrival: ambulatory <RENETTA Juarez Filed: 12/26/23 21:52> Limitations: no limitations <RENETTA Juarez Filed: 12/26/23 21:52> History of Present Illness HPI narrative: Patient is a 63 y/o male, with PMH of uncontrolled DM, who presents to the ED with c/o an abscess to his R axillary region. Patient reports having redness, swelling, pain to his right axillary region since last Saturday. He was seen by his primary care doctor on Saturday and prescribed doxycycline. Has been taking this as prescribed, but reports worsening pain, redness, redness now streaking down his right upper arm. Reports intermittent fevers, though has been taking Tylenol consistently for pain. Per records, patient was recently admitted to outside hospital for continuous EEG/AMS/seizures. Had extensive neurologic and psychiatric evaluation at that time. Patient with hx of labile mood, agitation. <RENETTA Juarez Last Filed: 12/26/23 21:52> Related Data Home medications: Home Medications Medication Instructions Recorded Confirmed mirtazapine 15 mg tablet (Remeron) 15 mg PO HS 12/26/23 12/26/23 <RENETTA Juarez Last Filed: 12/26/23 21:52> Allergies/Adverse reactions: Allergies Allergy/AdvReac Type Severity Reaction Status Date / Time No Known Allergies Allergy Verified 12/26/23 17:50 <RENETTA Juarez Filed: 12/26/23 21:52> Review of Systems Review of Systems: CONSTITUTIONAL: See HPI. MUSCULOSKELETAL: See HPI <Valentina Good PA-C - Last Filed: 12/26/23 21:52> All systems reviewed & are unremarkable except as noted in HPI and below <Valentina Good PA-C - Last Filed: 12/26/23 21:52> PMFSH Past Medical History Medical History: Medical History Difficulty controlling anger Elevated liver enzymes Heart murmur History of kidney stones Hypertriglyceridemia Hypertriglyceridemia Liver cirrhosis Myocardial infarction Myocardial infarction 1992 Type 2 diabetes mellitus Type 2 diabetes mellitus without complication, without long-term current use of insulin UTI (urinary tract infection) <Valentina Good PA-C - Last Filed: 12/26/23 21:52> Surgical History Surgical History: Surgical History No history of previous surgery <Valentina Good PA-C - Last Filed: 12/26/23 21:52> Family History Family History: Family History Mother Cerebrovascular accident <Valentina Good PA-C - Last Filed: 12/26/23 21:52> Social History Social History: Social History Smoking packs per day: 1 Smoking cigarettes per day: 20.0 Smoking status: Current every day smoker Second hand tobacco smoke exposure: Yes Alcohol intake: never Substance use: current Substance use type: heroin and prescription drug Other substance usage details: fentanyl Last use: 05/22/22 Do You Feel Safe in your Home?: Yes Lack of Transportation: No Lack of Food: Never True Current Housing: Decline to Answer Concerned About Future Housing: Decline to Answer Difficulty Paying Gas/Electric Bills: Decline to Answer Difficulty Paying for Meds: Decline to Answer Currently Unemployed: Decline to Answer [employer]
[2023-12-26] MEDS: NICOTINE (*PBKC) 14 MG PATCH 1 PATCH TRANSDERM (19:19)
[2023-12-26] MEDS: ceFAZolin 1 GM/NS 50 ML 1 GM/50 ML BAG IVPB (21:17)
[2023-12-26] MEDS: ACETAMINOPHEN 500 MG TABLET 1000 MG PO (21:44)
[2023-12-26 21:50] VITALS: BP 125/70; PULSE 87; RESP 14; TEMP 36.6; O2SAT 96
[2023-12-26] MEDS: VANCOMYCIN 1,250 MG/NS 250 ML 1,250 MG/250 ML BAG 166.67 MG IVPB (22:14)
[2023-12-26 22:41] VITALS: BMI 24.8
[2023-12-26 22:46] VITALS: BP 113/76; PULSE 81; RESP 16; TEMP 37; O2SAT 96; BMI 25.0
--- NOTE | 2023-12-26 22:49 | ADMGEN ---
This patient, Pedro Rasheed, was admitted to 3 [facility] Surg Room 302-01. Patient/family oriented to hospital policies and general routines including ID bracelet, bed and alarms, visiting hours, pain management, procedures, bathroom and other care routines, personal items, smoking policy, room service/diet, and visiting hours. Information on how to activate the Rapid Response Team has been discussed. Patient/Family are encouraged to report perceived risks to care and to ask questions if they do not understand what they are told or what they should do.
--- NOTE | 2023-12-27 00:41 | PM.SD2 ---
Same Day Admit/Disch: HPI History of Present Illness Chief complaint: Cllulitis R upper arm, Failed OP therapy Narrative: Pedro Rasheed is a 63 year old male who presents with cellulitis of his R axillary region. failed doxycycline therapy outpatient. admitted for IV abx. [facility] Past Medical History Medical History Difficulty controlling anger Elevated liver enzymes Heart murmur History of kidney stones Hypertriglyceridemia Hypertriglyceridemia Liver cirrhosis Myocardial infarction Myocardial infarction 1992 Type 2 diabetes mellitus Type 2 diabetes mellitus without complication, without long-term current use of insulin UTI (urinary tract infection) Surgical History Surgical History No history of previous surgery Family History Family History Mother Cerebrovascular accident Social History Social History Smoking packs per day: 1 Smoking cigarettes per day: 20.0 Smoking status: Current every day smoker Second hand tobacco smoke exposure: Yes Alcohol intake: never Substance use: current Substance use type: heroin and prescription drug Other substance usage details: fentanyl Last use: 05/22/22 Do You Feel Safe in your Home?: Yes Lack of Transportation: No Lack of Food: Never True Current Housing: Decline to Answer Concerned About Future Housing: Decline to Answer Difficulty Paying Gas/Electric Bills: Decline to Answer Difficulty Paying for Meds: Decline to Answer Currently Unemployed: Decline to Answer Education: Decline to Answer Difficulty w/ Childcare or Family Care: Decline to Answer Gender identity (if verbalized by the patient): Male Spiritual care concerns: No Same Day Admit/Disch: Med Pre-admit Medications Home Medications Medication Instructions Recorded Confirmed Type blood sugar diagnostic (Accu-Chek #100 12/16/23 12/26/23 Rx Guide test strips) blood-glucose meter (Accu-Chek #1 12/16/23 12/26/23 Rx Guide Me Glucose Meter) empty container (Easy Comfort #1 12/16/23 12/26/23 Rx Sharps Container) insulin glargine 100 unit/mL (3 45 unit (0.45 mL) subcut QAM #15 mL 12/16/23 12/26/23 Rx mL) subcutaneous pen (Basaglar KwikPen U-100 Insulin) lancets (Accu-Chek Softclix #100 ea 12/16/23 12/26/23 Rx Lancets) dapagliflozin propanediol 5 mg 5 mg PO QAM #30 tabs 12/18/23 12/26/23 Rx tablet (Farxiga) pen needle, diabetic 32 gauge x #100 ea 12/18/23 12/26/23 Rx /32 (BD Barb 2nd Gen Pen Needle) divalproex 500 mg tablet,extended 500 mg PO DAILY #90 tabs 12/19/23 12/26/23 Rx release 24 hr donepezil 5 mg tablet (Aricept) 5 mg PO QHS #90 tabs 12/19/23 12/26/23 Rx rosuvastatin 20 mg tablet 20 mg PO DAILY #90 tabs 12/19/23 12/26/23 Rx thiamine HCl (vitamin B1) 100 mg 100 mg PO DAILY #90 tabs 12/19/23 12/26/23 Rx tablet mirtazapine 15 mg tablet (Remeron) 15 mg PO HS 12/26/23 12/26/23 History Review of Systems Review of Systems All systems reviewed & are unremarkable except as noted in HPI and below (subjective) Exam Const: Other: unable to examine completely due to patient leaving AMA DS: Data Data Completed and Pending Labs on day of discharge: Labs from last 24 hours 12/26/23 18:56 WBC 10.1 H RBC 3.97 L Hgb 13.9 L Hct 38.7 L MCV 97.5 MCH 35.0 H MCHC 35.9 RDW 13.2 Plt Count 55 L MPV 11.9 H Immature Gran % (Auto) 0.7 H Neut % (Auto) 67.0 Lymph % (Auto) 14.6 L [place] % (Auto) 14.5 H Eos % (Auto) 2.7 Baso % (Auto) 0.5 Lymph # (Auto) 1.47 [place] # (Auto) 1.5 H Eos # (Auto) 0.3 Baso # (Auto) 0.1 Abs Immat Gran (auto) 0.07 H Absolute Neuts (auto) 6.7 Absolute Nucleated RBC 0.000 Nucleated RBC % 0.0 % Immature Plt Fraction 10.3 PT 15.3 H
--- NOTE | 2023-12-27 00:46 | PC.NURSE ---
Patient left AMA, Prior to leaving patient was educated of risks and was still in agreement with leaving AMA. Primary MD notified as well as Writer.
== END 2023-12-27 00:29 | disposition home or self-care (01) ==
LOC: ANHED 21:52 → ANH3MEDSUR 22:19
PROVIDERS: Admitting Provider General Practice; Emergency Provider Physician Assistant; PCP Internal Medicine; Visit Provider General Practice
DX: L03.111 Cellulitis of right axilla (principal); L02.411 Cutaneous abscess of right axilla; D69.6 Thrombocytopenia, unspecified; E11.9 Type 2 diabetes mellitus without complications; I25.2 Old myocardial infarction; E78.1 Pure hyperglyceridemia; K74.60 Unspecified cirrhosis of liver; F17.210 Nicotine dependence, cigarettes, uncomplicated; Z79.4 Long term (current) use of insulin; Z79.84 Long term (current) use of oral hypoglycemic drugs
CPT/HCPCS: 36415; 73201; 80053; 85025; 85055; 85610; 85730; 96365; 96375; 96376; 99285; A9270; G0378; J0690; J2270; J2405; J3370; Q9967

== ENCOUNTER 2024-02-10 07:50 | Outpatient (CLI) | payer BC, SELFPAY ==
--- NOTE | ~2024-02-10 | US_ITS ---
COMPLETE ABDOMINAL ULTRASOUND Ordering provider: Swapnil Oliveira DO History: . K74.60 - Unspecified cirrhosis of liver . Comparison: None. FINDINGS: LIVER: Normal size and coarse echotexture. Minimal lobulation of the outline of the liver is seen. No focal hepatic lesions or perihepatic fluid collections are identified. GALLBLADDER: Cholelithiasis. 2 stones seen and measure about 1 seen. No evidence for sludge, gallbladder wall thickening or perich olecystic fluid collections. A negative sonographic Armenta's sign was noted. Popliteal vein flow is normal. BILIARY DUCTS: No evidence for intra or extrahepatic biliary dilation. Common bile duct measures 5 mm in diameter which is within normal limits. PANCREAS: Normal echotexture and size. KIDNEYS: Right measures 10.9 cm . There is no evidence for hydronephrosis, solid renal mass, renal c alculi or perinephric fluid collections. No renal cysts. IVC: Patent. FREE FLUID: None. IMPRESSION: Cholelithiasis with no evidence of acute cholecystitis. Coarse echogenicity of the liver with minimal lobulation of the surface. Cirrhosis cannot be excluded . Follow-up and clinical correlation advised. Reviewed, dictated and finalized at location A. IMPRESSION: Cholelithiasis with no evidence of acute cholecystitis. Coarse echogenicity of the liver with minimal lobulation of the surface. Cirrho sis cannot be excluded. Follow-up and clinical correlation advised.
== END 2024-02-10 07:51 ==
LOC: MICIMG 07:50
PROVIDERS: PCP Internal Medicine; Visit Provider Internal Medicine
DX: K74.60 Unspecified cirrhosis of liver (principal); K80.20 Calculus of gallbladder without cholecystitis without obstruction
CPT/HCPCS: 76705

== ENCOUNTER 2024-03-09 14:16 | Outpatient (CLI) | payer BC, SELFPAY ==
[2024-03-09 21:15] LABS: Hepatitis C Virus Antibody Negative (Negative)
== END 2024-03-09 14:17 | disposition home or self-care (01) ==
LOC: ANHGOSHLAB 14:17
PROVIDERS: PCP Internal Medicine; Visit Provider Internal Medicine
DX: K74.60 Unspecified cirrhosis of liver (principal)
CPT/HCPCS: 36415; 86803

== ENCOUNTER 2024-04-02 09:20 | Outpatient (CLI) | payer BC, SELFPAY ==
[2024-04-02 14:18] LABS: INR 1.1; Prothrombin Time 15.1 Seconds (11.1-14.7)
[2024-04-02 14:52] LABS: Basophils Percent Auto 0.6 % (0.2-1.2); Eosinophils Absolute Auto 0.3 K/mm3 (0-0.3); Eosinophils Percent Auto 5.4 % (0-4.4); Hematocrit 39.1 % (42.0-52.0); Hemoglobin 13.4 g/dL (14.0-18.0); Immature Granulocyte Absolute 0.02 K/mm3 (0.00-0.031); Immature Granulocyte Percent A 0.4 % (0-0.5); Immature Platelet Fraction Pct 12.8 % (0.9-11.2); Lymphocytes Absolute Auto 1.73 K/mm3 (0.9-3.2); Lymphocytes Percent Auto 33.5 % (18.3-44.2); Mean Corpuscular HGB Conc 34.3 g/dl (32-36); Mean Corpuscular Hemoglobin 34.5 pg (26-34); Mean Corpuscular Volume 100.8 fl (80-100); Mean Platelet Volume 11.7 fl (7.4-10.4); Monocytes Absolute Auto 0.7 K/mm3 (0.1-0.6); Monocytes Percent Auto 12.6 % (2.6-8.5); Neutrophils Absolute Auto 2.5 K/mm3 (1.3-6.7); Neutrophils Percent Auto 47.5 % (45.5-73.1); Platelet Count Result 39 k/mm3 (150-375); Red Blood Count 3.88 M/mm3 (4.6-6.20); Red Cell Distribution Width 13.2 % (11.5-14.5); White Blood Count 5.2 K/mm3 (4.5-10.0)
[2024-04-02 15:08] LABS: Hemoglobin A1C 7.6 % (<5.7)
[2024-04-02 15:09] LABS: Platelet Estimate Decreased (Adequate); Schistocytes None Seen
[2024-04-02 17:56] LABS: Anion Gap 9 mmol/L (4-12); Blood Urea Nitrogen 10 mg/dL (9-20); Calcium 8.7 mg/dL (8.4-10.2); Carbon Dioxide 24 mmol/L (22-30); Chloride 105 mmol/L (98-107); Estimated Glomerular Filt Rate > 60; Glucose 201 mg/dL (65-110); Potassium 3.6 mmol/L (3.4-5.0); Sodium 138 mmol/L (137-145)
[2024-04-02 18:16] LABS: Prostate Specific Antigen 0.1 ng/mL (< OR = 4.0)
[2024-04-02 18:18] LABS: Hepatitis B Surface Antigen Negative (Negative)
[2024-04-06 14:33] LABS: Alpha Fetoprotein Tumor Marker 2.7 ng/mL (<6.1)
== END 2024-04-02 09:21 | disposition home or self-care (01) ==
LOC: ANHGOSHLAB 09:21
PROVIDERS: PCP Internal Medicine; Visit Provider Internal Medicine
DX: E11.9 Type 2 diabetes mellitus without complications (principal); D69.6 Thrombocytopenia, unspecified; Z79.899 Other long term (current) drug therapy; Z12.5 Encounter for screening for malignant neoplasm of prostate; K74.60 Unspecified cirrhosis of liver
CPT/HCPCS: 36415; 80048; 82105; 83036; 84153; 85025; 85055; 85610; 87340; G0103